=== PATIENT | male | born 1965 ===

== ENCOUNTER 2023-08-20 09:02 | Outpatient (CLI) | payer MEDICAID, OTHER | END 2023-08-20 23:59 | disposition EMS.NT | LOC: EMS 09:02 | DX: R40.4 Transient alteration of awareness (principal) ==

== ENCOUNTER 2023-09-11 09:41 | Outpatient (CLI) | payer MEDICAID, OTHER | END 2023-09-11 23:59 | disposition E | LOC: EMS 09:41 ==